=== PATIENT | male | born 1965 | race Caucasian/White ===

== ENCOUNTER 2025-04-19 08:10 | Emergency (ER) | payer MEDICAID ==
[~2025-04-19] VITALS: Ht 165.1 cm; Wt 63.7 kg
[2025-04-19 08:14] VITALS: PULSE 115; RESP 18; TEMP 98.5
[2025-04-19] MEDS ORDERED: BUPR1FIL3 SL (09:17)
--- NOTE | 2025-04-19 09:18 | Physician Documentation ---
HPI ~ General Chief Complaint: Medication Request Stated Complaint: MED REFILL Time Seen by MD: 09:07 Primary Medical Doctor: Dylan Mar Source: patient Mode of Arrival: POV Exam Limitations: no limitations History of Present Illness HPI Comments 59-year-old male here for refill of his Suboxone. His last dosage as Suboxone was last night. He states he recently moved here and his provider is over [facility] however he was not able to get a hold of her. He does not have a local provider. He has been on Suboxone 8 mg b.i.d. for years. Reason for Medication Refill: ran out of medication Medication is for: pain Symptomatic: No Medication Reconciliation Allergies: Coded Allergies: Penicillins (Verified Allergy, Unknown, 04/19/25) Past Medical History Past Medical History: Chronic Pain Past Surgical History: noncontributory Lives In: Home Review of Systems All Other Systems at this time: Reviewed and Negative Physical Exam Physical Exam Vital Signs: Temperature: 98.5, Source: Temporal, Heart Rate: 115, Respiratory Rate: 18, BP: 101/65, Pulse Oximetry: 94, Weight: 63.700 Oxygen Flow Rate: 0 Physical Exam General Appearance: Alert, WD/WN. NAD. HEENT: NCAT, PERRL, EOMI. Neck: Supple, trachea midline. Cardiovascular: RRR. No m/r/g. Lungs: CTAB. Breathing unlabored Extremities: Normal inspection. No edema. Skin: Warm/dry, normal color Neurological: Alert and oriented x4, normal gait. Psychiatric: Affect congruent with mood. Progress Results/Orders Results/Orders Vital Signs 04/19/25 08:14 Temp 98.5 Pulse 115 Resp 18 B/P (MAP) 101/65 Pulse Ox 94 O2 Flow Rate 0 Medical Decision Making Additional information obtaine: N/A Findings na Differential Dx:Considerations: Include: Adverse circumstances, Economic, Psych osocial, Medical services unavail., Medication refill, Medication non- compliance, Other Departure Time of Disposition: 09:15 Disposition: 01 HOME / SELF CARE / HOMELESS Impression: Primary Impression: Opiate dependence Qualified Codes: F11.29 - Opioid dependence with unspecified opioid-induced disorder Condition: Stable Discharge Instructions: Medicine Refill at the Emergency Department Additional Instructions: rx sent to pharmacy you need to get established with a pcp there is a suboxone clinic where you could go as well-there are few options, one is [facility] and this facility is open sunday through Referrals: NO PRIMARY CARE PROVIDER (PCP) Prescriptions Buprenorphine Hcl/Naloxone Hcl (Suboxone 8 Mg-2 Mg Sl Film) 8 Mg-2 Mg Film 1 STRIP SL BID for 30 Days, #60 STRIP opidate dependence f11.20 Prov: AMILCAR VANN 04/19/25 Education Educated: Patient Educated regarding: diagnosis, treatment, need for follow up Signature Scribe Signature: x Attestation: AMILCAR Quintana Apr 19, 2025 09:18
[2025-04-19 09:41] VITALS: BP 121/79; O2SAT 96
== END 2025-04-19 09:46 | disposition home or self-care (01) ==
LOC: ER 08:11
DX: F11.20 Opioid dependence, uncomplicated (principal); Z88.0 Allergy status to penicillin; Z76.0 Encounter for issue of repeat prescription
CPT/HCPCS: 99282

== ENCOUNTER 2025-04-24 07:31 | Emergency (ER) | payer MEDICAID ==
[~2025-04-24] VITALS: Ht 162.6 cm; Wt 64.8 kg
[~2025-04-24 07:31] MED LIST: BUPR1FIL3 SL
[2025-04-24 07:39] VITALS: TEMP 97.9
--- NOTE | 2025-04-24 08:00 | ELECTROCARDIOGRAPH REPORT ---
[facility] Test Date: 2025-04-24 Test Time: 07:57:11 Pat Name: JENIFFER RADER Department: [facility] Patient ID: [facility]-[id number] Room: Gender: M Urologic Nurse: : 1965 Requested By: JAMA MELCHOR Order Number: [id number] Reading MD: Dr. SERA Chicas Measurements Intervals [place] Rate: 88 P: 78 AL: 125 QRS: 79 QRSD: 80 T: 52 QT: 346 QTc: 419 Interpretive Statements Sinus rhythm Electronically Signed On 04-26-2025 15:15:[address] SERA Chicas Please click the below link to view image of tracing.
--- NOTE | 2025-04-24 08:18 | Physician Documentation ---
History of Present Illness General Chief Complaint: Cold, cough & congestion Stated Complaint: CONGESTION Time Seen by MD: 07:48 Primary Medical Doctor: [place] History of Present Illness Initial Comments Patient is a 59-year-old male with a history of COPD and a current smoker who complains of cough congestion wheezing over last two weeks. The patient ascrib es chills and subjective fevers as well. He is also complaining of a productive yellow sputum. The patient states he ran out of his inhaler. The patient denies any nausea or vomiting or diarrhea. The patient's symptoms are moderate and persistent. Medication Reconciliation Allergies: Coded Allergies: Penicillins (Verified Allergy, Unknown, 04/24/25) Scheduled Albuterol Sulfate (Ventolin Hfa), 2 PUFFS INH Q4HPRN Buprenorphine Hcl/Naloxone Hcl (Suboxone 8 Mg-2 Mg Sl Film), 1 STRIP SL BID Doxycycline Monohydrate (Doxycycline Monohydrate), 100 MG PO BID Prednisone* (Prednisone*), 2 TAB PO DAILY Scheduled PRN Benzonatate* (Benzonatate*), 1 CAP PO Q6H PRN for cough Past Medical History Past Medical History: Chronic Pain Past Surgical History: noncontributory Lives In: Home Review of Systems All Other Systems at this time: Reviewed and Negative Physical Exam Physical Exam Vital Signs: Temperature: 97.9, Source: Oral, Heart Rate: 89, Respiratory Rate: 15, BP: 122/78, Pulse Oximetry: 93, Weight: 64.800 Oxygen Flow Rate: 0 Physical Exam VITALS: Reviewed and as above. GENERAL: Alert, no apparent distress. HEENT: Normocephalic, atraumatic, PERRL, EOMI, dry mucosa, no erythema RESPIRATORY: Diminished breath sounds bilaterally with diffuse rhonchi and wheezing CHEST: No accessory muscle use, no retractions CV: Regular rate, rhythm, no edema, no murmur, No: JVD GI: Soft, non-tender, bowels sounds present, no rebound, guarding, or rigidity BACK: No CVA tenderness, or swelling MUSCULOSKELETAL: No deformities, no edema SKIN: Warm and dry, no rash NEURO: Oriented x4, No motor or sensory deficit PSYCH: Normal mood and affect, no agitation Progress Results/Orders Results/Orders Orders - JAMA MELCHOR MD Electrocardiogram (04/24/25 07:50) Chest,Single View (04/24/25 07:50) Svn Treatment (04/24/25 ) Completed Orders - OHLFS,JAMA Maurice MD Electrocardiogram (04/24/25 07:50) Cbc/Diff (04/24/25 07:50) Chest,Single View (04/24/25 07:50) Procalcitonin (04/24/25 07:50) BMP (04/24/25 07:50) PBNP (04/24/25 07:52) Ipratropium/Albuterol Nebule (Ipratrop/A (04/24/25 08:15) Dexamethasone Inj (Decadron 10mg/Ml Inj) (04/24/25 08:15) Ceftriaxone 2gm/D5w 50ml Bag (Rocephin 2 (04/24/25 08:15) Influenza Type A&B Rapid Test (04/24/25 07:52) Vital Signs 04/24/25 04/24/25 04/24/25 04/24/25 07:39 07:56 08:30 08:37 Temp 97.9 Pulse 92 89 80 90 Resp 20 15 16 18 B/P (MAP) 111/69 122/78 (93) Pulse Ox 90 93 97 96 O2 Delivery Room Air* Room Air* O2 Flow Rate 0 0 0 FiO2 21 21 04/24/25 04/24/25 09:58 10:33 Pulse 90 83 Resp 16 18 B/P (MAP) 103/70 (81) 112/79 Pulse Ox 93 99 Laboratory Tests Test 04/24/25 07:52 04/24/25 08:02 Influenza Type A Antigen Negative Influenza Type B Antigen Negative SARS-CoV-2 Antigen (Rapid) Negative White Blood Count 7.7 Red Blood Count 4.85 Hemoglobin 14.3 Hematocrit 42.5 Mean Corpuscular Volume 87.6 Mean Corpuscular Hemoglobin 29.5 Mean Corpuscular Hemoglobin Concent 33.6 Red Cell Distribution Width 13.2 Platelet Count 514 H Mean Platelet Volume 6.6 L Neutrophils (%) (Auto) 55.7 Lymphocytes (%) (Auto) 28.8 Monocytes (%) (Auto) 5.5 Eosinophils (%) (Auto) 8.9 H Basophils (%) (Auto) 1.1 H Neutrophils # (Auto) 4.3 Lymphocytes # (Auto) 2.2 Monocytes # (Auto) 0.4 Eosinophils # (Auto) 0.7 Basophils # (Auto) 0.1 CBC Comment Sodium Level 141 Potassium Level 4.3 Chloride Level 105 Carbon Dioxide Level 28.7 Anion Gap 7 L Blood Urea Nitrogen 13 Creatinine 0.66 Estimated GFR/1.73 m2 > 90 BUN/Creatinine Ratio 19.7 Glucose Level 103 Calcium Level 8.7 Pro-B-Type Natriuretic Peptide 56 Albumin 3.3 L Procalcitonin < 0.05 Chemistry Comments Medical Decision Making Additional information obtaine: old records Findings 59-year-old male presents with shortness of breath the patient has a diminished breath sounds bilaterally with some expiratory wheezes the patient was treated in the emergency department with a breathing treatment as well as steroids with some improvement in his symptoms the patient's cardiac workup has been unremarkable the patient's EKG was nonischemic the patient's troponins are unremarkable the patient will be discharged on steroids as well as doxycycline, the patient is chest x-ray was interpreted by me as showing a normal-appearing cardiac silhouette normal-appearing lung arreola a normal-appearing bony structures I interpreted as a normal EKG I have also reviewed the radiologist's interpretation as well her manager of regulatory affairs was interpreted as a sinus rhythm and the pulse oximetry was interpreted as abnormal and low. The patient's EKG was interpreted by me as being a sinus rhythm rate of 88 with a normal axis and no ST-elevation or ST-depression who was interpreted as normal EKG Differential Diagnosis COPD, pneumonia, pericarditis, pleurisy, myocardial ischemia, Departure Impression: Primary Impression: COPD (chronic obstructive pulmonary disease) with acute bronchitis Discharge Instructions: Acute Bronchitis, Adult Referrals: NO PRIMARY CARE PROVIDER (PCP) Prescriptions Albuterol Sulfate (Ventolin Hfa) 90 Mcg Hfa.aer.ad 2 PUFFS INH Q4HPRN, #1 INHALER Prov: JAMA MELCHOR MD 04/24/25 Prednisone* (Prednisone*) 20 Mg Tablet 2 TAB PO DAILY, #10 TAB Prov: JAMA MELCHOR MD 04/24/25 Benzonatate* (Benzonatate*) 100 Mg Capsule 1 CAP PO Q6H PRN for cough, #30 CAP Prov: JAMA MELCHOR MD 04/24/25 Doxycycline Monohydrate (Doxycycline Monohydrate) 100 Mg Capsule 100 MG PO BID, #14 CAP may sub doxycycline hyclate or azithromycin z-pack as prescribed Prov: JAMA MELCHOR MD 04/24/25 Signature Scribe Signature: No scribe Attestation: The note accurately reflects work and decisions made by me.Jama Melchor MD 04/27/25 13:49 JAMA MELCHOR MD Apr 24, 2025 08:18
[2025-04-24] MEDS: ipratropium/albuterol 3ml nebule NEB ONE (08:28)
[2025-04-24 08:30] VITALS: PULSE 80; RESP 16; O2SAT 97
--- NOTE | 2025-04-24 08:33 | RADIOLOGY REPORT ---
CHEST RADIOGRAPH Indication: SEPSIS Technique: Single frontal view of the chest was obtained COMPARISON: None FINDINGS: Lines and Tubes: None Lungs: Clear Pleura: No effusion. No pneumothorax. Cardiomediastinal contours: Unremarkable Bones: Unremarkable IMPRESSION: No acute disease.
[2025-04-24 08:36] LABS: MEAN PLATELET VOLUME 6.6 FL (7.4-10.4); RED CELL DISTRIBUTION WIDTH 13.2 % (11.5-14.5)
[2025-04-24 08:37] VITALS: PULSE 90; RESP 18; O2SAT 96
[2025-04-24] MEDS: dexamethasone sod phosphate 10mg/ml inj IV STA (08:38)
[2025-04-24] MEDS: CefTRIAXone 2gm/D5W 50ml BAG 50 ML IV ONE (08:38)
[2025-04-24 08:49] LABS: CREATININE 0.66 MG/DL (0.60-1.10); PRO BRAIN NATRIURETIC PEPTIDE 56 PG/ML (0-125); TOTAL CARBON DIOXIDE 28.7 MMOL/L (24-32); eCRCL 101 ML/MIN; eGFR > 90 ML/MIN
[2025-04-24 09:45] LABS: INFLUENZA TYPE A ANTIGEN RAPID NEGATIVE (Negative); INFLUENZA TYPE B ANTIGEN RAPID NEGATIVE (Negative)
[2025-04-24] MEDS ORDERED: DOXY100C43 PO (10:24)
[2025-04-24] MEDS ORDERED: PRED20TA PO (10:24)
[2025-04-24] MEDS ORDERED: BENZ-38 PO (10:24)
[2025-04-24] MEDS ORDERED: ALBU18HF2 INH (10:24)
[2025-04-24 10:33] VITALS: BP 112/79; PULSE 83; RESP 18; O2SAT 99
== END 2025-04-24 10:36 | disposition home or self-care (01) ==
LOC: ER 07:32
DX: J44.0 Chronic obstructive pulmonary disease with (acute) lower respiratory infection (principal); J20.9 Acute bronchitis, unspecified; G89.29 Other chronic pain; Z88.0 Allergy status to penicillin; Z79.899 Other long term (current) drug therapy; Z20.822 Contact with and (suspected) exposure to COVID-19
CPT/HCPCS: 36415; 71045; 80048; 83880; 84145; 85025; 87804; 87811; 93005; 94640; 96365; 96375; 99285; J0696; J1100; 94760